=== PATIENT | male | born 1960 | race Caucasian/White ===

== ENCOUNTER 2016-12-18 12:35 | Emergency (ER) | payer BC ==
[~2016-12-18] VITALS: Ht 167.6 cm; Wt 84.5 kg
[2016-12-18 12:50] VITALS: Ht 167.6 cm; Wt 84.5 kg
[2016-12-18] MEDS ORDERED: morphine 4 MG/ML VIAL IV STA (13:00)
[2016-12-18] MEDS ORDERED: ONDANSETRON 4 MG INJ IV STA (13:00)
[2016-12-18 13:48] LABS: ADD SCAN DIFF NO
[2016-12-18 13:50] LABS: BASOPHILS % 0.4 % (0.0-2.0); EOSINOPHILS # 0.1 10^3/ul (0.0-0.5); HEMATOCRIT 40.1 % (42.0-52.0); HEMOGLOBIN 13.8 g/dl (14.0-18.0); LYMPHOCYTES # 2.2 10^3/ul (0.8-2.9); LYMPHOCYTES % 27.9 % (15.0-51.0); MEAN CORPUSCULAR HEMOGLOBIN 31.1 pg (29.0-33.0); MEAN CORPUSCULAR HGB CONC 34.4 g/dl (32.0-37.0); MEAN CORPUSCULAR VOLUME 90.3 fl (82.0-101.0); MEAN PLATELET VOLUME 10.7 fl (7.4-10.4); MONOCYTE # 0.6 10^3/ul (0.3-0.9); MONOCYTES % 7.8 % (0.0-11.0); NEUTROPHILS % 62.5 % (39.0-77.0); PLATELET COUNT 182 10^3/UL (140-415); RED BLOOD COUNT 4.44 10^6/ul (4.70-6.10); RED CELL DISTRIBUTION WIDTH 12.5 % (11.5-14.5)
[2016-12-18 14:06] LABS: ALANINE AMINOTRANSFERASE 32 IU/L (13-69); ALBUMIN 4.8 g/dl (3.3-4.9); ALBUMIN/GLOBULIN RATIO 6.85; ALKALINE PHOSPHATASE 72 IU/L (42-121); ANION GAP 14 (8-16); ASPARTATE AMINO TRANSFERASE 20 IU/L (15-46); BILIRUBIN,INDIRECT 0.3 mg/dl (0-1.1); BILIRUBIN,TOTAL 0.3 mg/dl (0.2-1.3); BLOOD UREA NITROGEN 16 mg/dl (7-20); CALCIUM 9.2 mg/dl (8.4-10.2); CARBON DIOXIDE 27 mmol/L (21-31); CHLORIDE 107 mmol/L (97-110); CREATININE 0.69 mg/dl (0.61-1.24); GLUCOSE 151 mg/dl (70-220); POTASSIUM 3.9 mmol/L (3.5-5.1); SODIUM 144 mmol/L (135-144); TOTAL PROTEIN 5.5 g/dl (6.1-8.1)
--- NOTE | 2016-12-18 14:08 | RADRPT ---
PROCEDURE: US Abdomen. CLINICAL INDICATION: abdominal pain TECHNIQUE: Multiple real-time images were acquired of the patient's right upper quadrant abdomen a nd retroperitoneum utilizing a high resolution transducer. COMPARISON: None FINDINGS: The liver demonstrates slightly increased echogenicity. The liver is enlarged in size and no focal solid lesions are seen. The liver measures 20.4 cm in length. The portal vein is patent with normal direction of flow. No intrahepatic biliary dilatation is seen. No gallstones are identified within the gallbladder. There is no pericholecystic fluid or gallbladd er wall thickening. The common bile duct measures 3.5 mm in maximal dimension. The visualized portions of the pancreas are unremarkable. The tail of the pancreas is not seen. No free fluid is identified. The right kidney is normal in size, and demonstrate normal echogenicity and cortical thickness. The right kidney measures 12.1 cm in long dimension. There is no evidence of hydronephrosis. There are no kidney stones. RPTAT: AA IMPRESSION: Mild hepatomegaly with fatty infiltration. No evidence of gallstones. .Lennox Capps MD, Date Time Electronically viewed and signed by .Lennox Capps MD, on 12/18/2016 14:08 .S/
--- NOTE | 2016-12-18 14:12 | RADRPT ---
PROCEDURE: XR Chest. CLINICAL INDICATION: Abdominal pain. TECHNIQUE: Single frontal view. COMPARISON: None. FINDINGS: The lungs are clear. The heart size is normal. There is no pleural effusion. There is no pneumothorax. IMPRESSION: 1. Normal chest radiograph. RPTAT: QQ .Jerome Pineda MD, Date Time Electronically viewed and signed by .Jerome Pineda MD, on 12/18/2016 14:12 .R/
[2016-12-18 14:20] LABS: TROPONIN-I < 0.012 ng/ml (0.00-0.12)
[2016-12-18 14:35] LABS: ADD UMIC YES; UR BILIRUBIN (Dip) NEGATIVE (NEGATIVE); UR BLOOD (Dip) NEGATIVE (NEGATIVE); UR CLARITY CLEAR (CLEAR); UR COLOR LT. YELLOW (YELLOW); UR GLUCOSE (Dip) NEGATIVE (NEGATIVE); UR KETONES (Dip) NEGATIVE (NEGATIVE); UR LEUKOCYTE ESTERASE (Dip) NEGATIVE (NEGATIVE); UR NITRITE (Dip) NEGATIVE (NEGATIVE); UR TOTAL PROTEIN (Dip) TRACE (NEGATIVE); UR UROBILINOGEN (Dip) 0.2 E.U./dL (0.1-1.0)
--- NOTE | 2016-12-18 14:51 | ERD ---
ER Documentation Chief Complaint Date/Time DATE: 12/18/16 TIME: 14:51 Chief Complaint Pt with R sided CP radiating to R arm since this morning. HPI This is a 56-year-old male who presents to the emergency room for evaluation of right-sided abdominal pain. The patient states she has had abdominal pain for the past 48 hours. He localizes to the right portion of his abdomen and states it is an achy pain is sharp pain worse with deep inspiration. The patient denies any chest pain palpitations shortness of breath or nausea or vomiting associated with this. He does state that he drinks alcohol on a daily basis and did drink alcohol last night. ROS All systems reviewed and are negative except as per history of present illness. Medications Home Meds No Active Prescriptions or Reported Meds Allergies Allergies: Coded Allergies: No Known Allergy (Unverified , 12/18/16) PMhx/Soc Medical and Surgical Hx: pt denies Medical Hx, pt denies Surgical Hx Hx Alcohol Use: Yes (FREQUENT ) Hx Substance Use: No Hx Tobacco Use: Yes (15-35 CIGS/DAY) Smoking Status: Current every day smoker Physical Exam Vitals Vital Signs Date Time Temp Pulse Resp B/P Pulse Ox O2 Delivery O2 Flow Rate FiO2 12/18/16 12:50 98.8 88 18 134/88 98 Physical Exam INITIAL VITAL SIGNS: Reviewed by me GENERAL: The patient is well developed and appropriate for usual state of health in no apparent distress HEENT: Pupils equal, round, and reactive to light. EOMI. There is no scleral icterus. NECK: C-spine is soft and supple, there is no meningismus. There is no cervical lymphadenopathy. LUNGS: Clear to auscultation bilaterally. There are no rales, wheezes or rhonchi. HEART: Regular rate and rhythm, no murmurs, clicks, rubs or gallops. ABDOMEN: Positive Walsh sign, otherwise soft, non-tender, non-distended. There are bowel sounds in all four quadrants. No rebound or guarding. EXTREMITIES: There is no peripheral cyanosis or edema. No focal swelling or erythema. NEUROLOGICAL: The patient moves all four extremities with 5/5 strength. Cranial nerves II - XII are intact. Normal gait. Alert and oriented SKIN: There is no apparent rash or petechiae. HEME/LYMPHATIC: There is no evidence of excessive bruising or lymphedema. PSYCHIATRIC: The patient does not appear anxious or depressed. Result Diagram: 12/18/16 1340 12/18/16 1340 Results 24 hrs Laboratory Tests Test 12/18/16 13:40 12/18/16 14:15 White Blood Count 8.010^3/ul Red Blood Count 4.4410^6/ul Hemoglobin 13.8g/dl Hematocrit 40.1% Mean Corpuscular Volume 90.3fl Mean Corpuscular Hemoglobin 31.1pg Mean Corpuscular Hemoglobin Concent 34.4g/dl Red Cell Distribution Width 12.5% Platelet Count 69557^3/UL Mean Platelet Volume 10.7fl Neutrophils % 62.5% Lymphocytes % 27.9% Monocytes % 7.8% Eosinophils % 1.0% Basophils % 0.4% Nucleated Red Blood Cells % 0.0/100WBC Neutrophils # 5.010^3/ul Lymphocytes # 2.210^3/ul Monocytes # 0.610^3/ul Eosinophils # 0.110^3/ul Basophils # 0.010^3/ul Nucleated Red Blood Cells # 0.010^3/ul Sodium Level 144mmol/L Potassium Level 3.9mmol/L Chloride Level 107mmol/L Carbon Dioxide Level 27mmol/L Anion Gap 14 Blood Urea Nitrogen 16mg/dl Creatinine 0.69mg/dl Glucose Level 151mg/dl Calcium Level 9.2mg/dl Total Bilirubin 0.3mg/dl Direct Bilirubin 0.00mg/dl Indirect Bilirubin 0.3mg/dl Aspartate Amino Transf (AST/SGOT) 20IU/L Alanine Aminotransferase (ALT/SGPT) 32IU/L Alkaline Phosphatase 72IU/L Troponin I < 0.012ng/ml Total Protein 5.5g/dl Albumin 4.8g/dl Globulin 0.70g/dl Albumin/Globulin Ratio 6.85 Lipase 44U/L Urine Color LT. YELLOW Urine Clarity CLEAR Urine pH 6.0 Urine Specific [place] 1.025 Urine Ketones NEGATIVE Urine Nitrite NEGATIVE Urine Bilirubin NEGATIVE Urine Urobilinogen 0.2 E.U./dL Urine Leukocyte Esterase NEGATIVE Urine Microscopic RBC 2-5/HPF Urine Microscopic WBC 0-2/HPF Urine Hemoglobin NEGATIVE Urine Glucose NEGATIVE% Urine Total Protein TRACE Current Medications Medications (Trade) Dose Ordered Sig/Radames Route PRN Reason Start Time Stop Time Status Last Admin Dose Admin Morphine Sulfate (morphine) 4 mg ONCE STAT IV 12/18/16 13:00 12/18/16 13:02 DC 12/18/16 14:15 Ondansetron HCl (Zofran Inj) 4 mg ONCE STAT IV 12/18/16 13:00 12/18/16 13:02 DC 12/18/16 14:15 Procedures/MDM Ultrasound gallbladder: Mild hepatomegaly with fatty infiltration. No evidence of gallstones. Chest X-ray 1V Interpreted by me: Soft Tissue: No acute abnormalities Bones: No acute abnormalities Mediastinum/Cardiac Silhouette/Lungs: [No acute abnormalities] EKG: Rate/Rhythm: [Normal Sinus Rhythm] QRS, ST, T-waves: [No changes consistent w/ acute ischemia] Impression: [No evidence of ischemia or arrhythmia] This is a 36-year-old male presents to the emergency room for evaluation of abdominal pain. When I evaluated him he did have a positive Walsh sign. Ultrasound does not reveal any signs of cholecystitis. The patient has no gallbladder sludge or gallstones. Lab work does not show any leukocytosis. This patient's EKG is also nonischemic and troponin is negative. The patient did have tenderness on the right lateral rib cage as well. I do feel this could be costochondritis. The patient was given Toradol in the emergency room and does state he is feeling better. He will be discharged at this time with a prescription for Naprosyn instructions to decrease his alcohol intake. Patient was advised he can return to the emergency room at any time for reevaluation feels worse and he verbalized understanding. Differential diagnoses entertained was broad with potential high acuity. Patient has been evaluated for appendicitis, cholecystitis, and other high risk medical and surgical causes of abdominal pain. Ultimately the patient's evaluation is nondiagnostic. Based on the patient's lack of risk factors, as well as the patient's clinical, laboratory, and imaging data, the patient appears to be low risk for these high risk causes of abdominal pain. Smoking Cessation Therapy: Pt. was lectured for greater than 3 minutes on the health risks of continued smoking and the benefits of cessation. Departure Diagnosis: Primary Impression: Abdominal pain Additional Impression: Alcohol abuse Condition: Stable LAYA CURRAN DO Dec 18, 2016 14:51
[2016-12-18] MEDS ORDERED: KETOROLAC 15 MG INJ IV STA (14:56)
[2016-12-18] MEDS ORDERED: IBUP800T25 PO (15:00)
[2016-12-18 16:12] VITALS: BP 115/79; PULSE 75; RESP 20
== END 2016-12-18 16:15 | disposition home or self-care (01) ==
LOC: E/R 12:35
DX: R10.9 Unspecified abdominal pain (principal); F10.10 Alcohol abuse, uncomplicated; F17.210 Nicotine dependence, cigarettes, uncomplicated
CPT/HCPCS: 36415; 71010; 76705; 80053; 81001; 83690; 84484; 85025; 96374; 96375; J1885; J2270; J2405; Z7502; 93005

== ENCOUNTER 2017-08-08 13:50 | Emergency (ER) | END 2017-08-08 16:12 | disposition home or self-care (01) ==

== ENCOUNTER 2018-06-27 08:03 | Emergency (ER) | payer BC ==
[~2018-06-27] VITALS: Wt 88.5 kg
[~2018-06-27 08:03] MED LIST: CETI10CA PO; ERYT1OIN6 BOTH EYES; IBUP800T48 PO
[2018-06-27 08:11] VITALS: BP 146/97; PULSE 102; RESP 16
[2018-06-27] MEDS ORDERED: KETOROLAC 30 MG INJ IM STA (08:26)
[2018-06-27] MEDS ORDERED: HYDROCODONE/APAP (5/325) TAB PO ONE (08:30)
[2018-06-27] MEDS ORDERED: IBUP-1542 PO (09:20)
[2018-06-27] MEDS ORDERED: TRAM50TA2 PO (09:20)
--- NOTE | 2018-06-27 10:16 | ERD ---
ER Documentation Chief Complaint Chief Complaint LEFT BACK PAIN RADIATING DOWN THE LEFT LEG HPI Patient is a 57-year-old male who presents to the ER for concerns of left-sided back pain and left leg pain. Patient states his symptoms started 2 days ago. Patient states the pain started after he moved a heavy object which "four other people could not move". Patient states he has tried taking ibuprofen and Tylenol and naproxen with no alleviation of pain. Patient states the pain is in his calf as well as his lower back. Patient denies any fevers or chills. Patient denies any chest pain, shortness of breath, nausea, vomiting or abdominal pain. Patient denies any saddle anesthesia, urinary incontinence or stool incontinence. Patient denies any dysuria, burning, urgency or hematuria. ROS All systems reviewed and are negative except as per history of present illness. Medications Home Meds Active Scripts Ibuprofen* (Motrin*) 600 Mg Tab, 600 MG PO Q6, #30 TAB Prov:ALBERT ANDRES PA-C 06/27/18 Tramadol HCl (Tramadol HCl) 50 Mg Tablet, 50 MG PO Q6 PRN for PAIN, #10 TAB Prov:ALBERT ANDRES PA-C 06/27/18 Erythromycin Base (Erythromycin) 1 Gm Oint...g., 1 APPLIC BOTH EYES TID for 7 Days Prov:ALBERT ANDRES PA-C 08/08/17 Cetirizine Hcl* (Zyrtec*) 10 Mg Capsule, 10 MG PO DAILY, #10 TAB.CHEW Prov:ALBERT ANDRES PA-C 08/08/17 Ibuprofen* (Motrin*) 800 Mg Tab, 800 MG PO Q6H PRN for PAIN AND OR ELEVATED TEMP, #30 TAB Prov:LAYA CURRAN DO 12/18/16 Allergies Allergies: Coded Allergies: No Known Allergy (Unverified , 06/27/18) PMhx/Soc Medical and Surgical Hx: pt denies Medical Hx, pt denies Surgical Hx Hx Alcohol Use: Yes (FREQUENT ) Hx Substance Use: No Hx Tobacco Use: Yes (15-35 CIGS/DAY) Smoking Status: Current every day smoker FmHx Family History: No diabetes Physical Exam Vitals Vital Signs Date Temp Pulse Resp B/P (MAP) Pulse Ox O2 O2 Flow FiO2 Time Delivery Rate 06/27/18 97.9 102 16 146/97 96 08:11 (113) Physical Exam GENERAL: Well-developed, well-nourished male. Appears in no acute distress. HEAD: Normocephalic, atraumatic. EYES: Pupils are equally reactive bilaterally. EOMs grossly intact. No conjunctival erythema. ENT: Moist mucous membranes. No uvula deviation. No kissing tonsils. NECK: Supple. No meningismus. Normal range of motion of the neck. LUNG: Clear to auscultation bilaterally. No rhonchi, wheezing, rales or coarse breath sounds. HEART: Regular rate and rhythm. No murmurs, rubs or gallops. BACK: No midline tenderness. Tender to palpation in the left paraspinal lumbar region. Pain is reproducible EXTREMITIES: Equal pulses bilaterally. No peripheral clubbing, cyanosis or edema. No unilateral leg swelling. NEUROLOGIC: Alert and oriented. Moving all four extremities without any difficulty. Normal speech. Steady gait. SKIN: Normal color. Warm and dry. No rashes or lesions. Results 24 hrs Current Medications Medications Dose Sig/Radames Start Time Status Last (Trade) Ordered Route PRN Stop Time Admin Dose Reason Admin 1 tab ONCE ONCE 06/27/18 DC 06/27/18 Acetaminophen PO 08:30 08:33 / 06/27/18 Hydrocodone 08:31 Bitart ([place] (5/325)) Ketorolac 30 mg ONCE STAT 06/27/18 DC 06/27/18 Tromethamine IM 08:26 08:33 (Toradol) 06/27/18 08:29 Procedures/MDM ED COURSE: The patient was stable throughout ED course. I kept the patient and/or family informed of laboratory and diagnostic imaging results throughout the ED course. DIAGNOSTIC IMAGING: Read by radiologist. DIAGNOSTIC IMAGING REPORT Patient: DISHA ROSAS : 1960 Age: 57 Sex: M MR #: [id number] DOS: 06/27/18825 Ordering MD: ALBERT ANDRES PA-C Location: [facility] Room/Bed: PROCEDURE: XR Lumbar Spine. CLINICAL INDICATION: Back pain. TECHNIQUE: Three views. AP, lateral and cone-down lateral view of the lumbar spine were obtained. COMPARISON: No prior studies are available for comparison. FINDINGS: There is normal stature and alignment of the vertebrae. There is no fracture. There is no lytic or blastic lesion. There are degenerative changes with small osteophytes throughout. There is disc space narrowing at L4-5. The paravertebral soft tissues are unremarkable. IMPRESSION: 1. Degenerative changes. 2. Otherwise unremarkable images of the lumbar spine. RPTAT: QQ .Jerome Pineda MD, Date Time Electronically viewed and signed by .Jerome Pineda MD, MD on 06/27/2018 09:08 .R/ CC: ALBERT ANDRES PA-C [id number] Patient: DISHA ROSAS : 1960 Age: 57 Sex: M MR #: [id number] DOS: 06/27/18 0826 Ordering MD: ALBERT ANDRES PA-C Location: [facility] Room/Bed: PROCEDURE: US Lower extremity Venous. CLINICAL INDICATION: leg edema, pain TECHNIQUE: Multiple sonographic images of the left lower extremity deep venous system was obtained utilizing grayscale, color-flow, compressive sonography and doppler imaging with augmentation. The images were reviewed on a PACS worksta tion. COMPARISON: None. FINDINGS: There is normal compressibility and flow within the left common femoral, femoral, posterior tibial, peroneal and popliteal veins. RPTAT: AA IMPRESSION: No sonographic evidence for deep venous thrombosis. .Lennox Capps MD, MD Date Time Electronically viewed and signed by .Lennox Capps MD, MD on 06/27/2018 08:54 .S/ CC: ALBERT ANDRES PA-C [phone] MEDICAL DECISION MAKING: This is a 57-year-old male who presents ER for concerns of left-sided back pain and left leg pain patient denies any falls or trauma. Pain started after patient lifted a heavy object. Vital signs were reviewed. Patient was afebrile. Patient denied any saddle anesthesia, urinary incontinence, bowel incontinence, night pain or recent trauma. X-ray imaging showed degenerative changes of the lumbar spine. Doppler ultrasound of the left lower extremity was negative for DVT. Patient was given Toradol and [place] for his pain. Patient was able to get a ride home from his family member. Patient reported improvement in pain prior to discharge. At this time, patient presentation most consistent with lower back pain and left leg pain. Patient likely has sciatica. Low suspicion for cauda equine syndrome, spinal fractures, epidural abscess, spinal metastases, osteomyelitis, aortic dissection, ruptured or leaking AA, DJD, pyelonephritis, DVT, or nephrolithiasis. PRESCRIPTIONS: Ibuprofen Tramadol, patient was asked to take this medication driving or operating any machinery. DISCHARGE: At this time, patient is stable for discharge and outpatient management. RICE therapy and ROM exercises were advised to avoid stiffness. I have instructed the patient to follow-up with his/her primary care physician in 1-2 days. I have discussed with the patient the possibility of needing to see an field sales specialist for further workup and imaging if the pain persists. I have instructed the patient to promptly return to the ER for any new or worsening symptoms including increased pain, swelling, warmth, urinary incontinence, stool incontinence, weakness or numbness. The patient and/or family expressed understanding of and agreement with this plan. All questions were answered. Home care instructions were provided. Disclaimer: Inadvertent spelling and grammatical errors are likely due to EHR/dictation software use and do not reflect on the overall quality of patient care. Also, please note that the electronic time recorded on this note does not necessarily reflect the actual time of the patient encounter. Departure Diagnosis: Primary Impression: Musculoskeletal pain Additional Impression: Lumbar back pain Condition: Stable Patient Instructions: Back Pain W/ Sciatica Additional Instructions: Do not take tramadol driving or operating any machinery. Call your primary care doctor TOMORROW for an appointment during the next 1-2 days.See the doctor sooner or return here if your condition worsens before your appointment time. ALBERT ANDRES PA-C Jun 27, 2018 10:16
== END 2018-06-27 09:33 | disposition home or self-care (01) ==
LOC: FTE 08:03
DX: M54.5 Low back pain (principal); F17.210 Nicotine dependence, cigarettes, uncomplicated
CPT/HCPCS: 72100; 93971; 96372; 99285; J1885; Z7610

== ENCOUNTER 2018-07-01 00:55 | Emergency (ER) | payer BC ==
[~2018-07-01] VITALS: Ht 167.6 cm; Wt 86.7 kg
[~2018-07-01 00:55] MED LIST changes: +IBUP-1542 PO; +TRAM50TA2 PO
[2018-07-01 00:58] VITALS: Ht 167.6 cm; Wt 86.7 kg
[2018-07-01] MEDS ORDERED: morphine 4 MG/ML VIAL IM STA (01:37)
[2018-07-01] MEDS ORDERED: KETOROLAC 30 MG INJ IM STA (02:39)
[2018-07-01] MEDS ORDERED: HYDR-4011 PO (04:39)
[2018-07-01 04:54] VITALS: BP 122/71; PULSE 93; RESP 18
--- NOTE | 2018-07-01 05:33 | ERD ---
ER Documentation Chief Complaint Chief Complaint L leg pain since wednesday- seen @ 06/27 and PMD already HPI 57-year-old male patient reports that the back pain feels like it is radiating d own his left leg but also feels like the left ankle pain is radiating up to his back. Reports that when he was trying to lift up the heavy object, he may have twisted his left ankle. She reports that he is tried taking ibuprofen, naproxen, tramadol without any relief. Reports his pain is 10 out of 10. States that movement makes his pain worse. Denies any saddle anesthesia, urine or bowel incontinence. Denies any fever, chills, nausea, vomiting, diarrhea, neck stiffness, loss sensation, loss of range of motion. ROS All systems reviewed and are negative except as per history of present illness. Medications Home Meds Active Scripts Hydrocodone/Acetaminophen ([place] 5-325 Tablet) 1 Each Tablet, 1 TAB PO Q6H PRN for PAIN, #7 TAB Prov:AALIYAH LOPEZ PA-C 07/01/18 Ibuprofen* (Motrin*) 600 Mg Tab, 600 MG PO Q6, #30 TAB Prov:ALBERT ANDRES PA-C 06/27/18 Tramadol HCl (Tramadol HCl) 50 Mg Tablet, 50 MG PO Q6 PRN for PAIN, #10 TAB Prov:ALBERT ANDRES PA-C 06/27/18 Erythromycin Base (Erythromycin) 1 Gm Oint...g., 1 APPLIC BOTH EYES TID for 7 Days Prov:ALBERT ANDRES PA-C 08/08/17 Cetirizine Hcl* (Zyrtec*) 10 Mg Capsule, 10 MG PO DAILY, #10 TAB.CHEW Prov:ALBERT ANDRES PA-C 08/08/17 Ibuprofen* (Motrin*) 800 Mg Tab, 800 MG PO Q6H PRN for PAIN AND OR ELEVATED TEMP, #30 TAB Prov:LAYA CURRAN DO 12/18/16 Allergies Allergies: Coded Allergies: No Known Allergy (Unverified , 06/27/18) PMhx/Soc Medical and Surgical Hx: pt denies Medical Hx, pt denies Surgical Hx Hx Alcohol Use: Yes (FREQUENT ) Hx Substance Use: No Hx Tobacco Use: Yes Smoking Status: Current every day smoker FmHx Family History: No diabetes, No coronary disease Physical Exam Vitals Vital Signs Date Temp Pulse Resp B/P (MAP) Pulse Ox O2 O2 Flow FiO2 Time Delivery Rate 07/01/18 98.8 93 18 122/71 98 Room Air 04:54 (88) 07/01/18 97.4 104 20 184/104 98 00:58 (130) Physical Exam Const: [id number], well-nourished. In no acute distress. Head: Atraumatic, normocephalic Eyes: Normal Conjunctiva without injection. No purulent discharge. ENT: Normal external ear, nose. Moist oropharynx without tonsillar exudates. Non-erythematous pharynx. Uvula midline. No drooling. No trismus. Neck: No cervical midline tenderness. Full range of motion. No meningismus. No cervical lymphadenopathy. No JVD. Resp: Clear to auscultation bilaterally. No wheezing, rhonchi, rales, or crackles. No accessory muscle use. No retractions. Cardio: Regular rate and rhythm. No murmurs, rubs or gallops. Abd: Soft, nontender, non distended. Normal bowel sounds. No palpable masses. No rebound tenderness. No guarding. Negative McBurney's point. Negative psoas sign. Negative obturator sign. Skin: No petechiae or rashes Back: No CVA tenderness. Tender palpation of the left lumbar muscles, L4-L5 region. Limited range of motion due to pain. Ext: No cyanosis, or edema. Neur: Awake and alert. Normal gait. Normal coordination. Psych: Normal Mood and Affect Results 24 hrs Current Medications Medications Dose Sig/Radames Start Time Status Last (Trade) Ordered Route PRN Stop Time Admin Dose Reason Admin Morphine 4 mg ONCE STAT 07/01/18 DC 07/01/18 Sulfate IM 01:37 01:52 (morphine) 07/01/18 01:43 Ketorolac 30 mg ONCE STAT 07/01/18 DC 07/01/18 Tromethamine IM 02:39 03:02 (Toradol) 07/01/18 02:40 Procedures/MDM 57-year-old male patient with no significant past medical history presents to ED complaining of lower back pain, left leg pain. Patient is afebrile and nontoxic-appearing. Patient given 4 mg IM morphine, 30 mg IM Toradol with some improvement of his symptoms. PROCEDURE: XR Left Ankle. CLINICAL INDICATION: Left-sided ankle injury TECHNIQUE: AP, lateral and oblique view(s) of the left ankle were performed. COMPARISON: None FINDINGS: There is no acute fracture identified. The joint spaces are preserved. The regional soft tissues are within normal limits. IMPRESSION: No definite evidence for acute fracture or dislocation of the left ankle. PROCEDURE: CT L-Spine. CLINICAL INDICATION: Back and leg pain. TECHNIQUE: CT scan of the lumbar spine was performed on a high-resolution multi-detector CT scanner. No IV contrast was administered. Coronal and sagittal reformatted images were obtained from the axial source images. Images were reviewed on a high-resolution PACS workstation. Exam CTDI = 25.0 mGy and the DLP = 995.13 mGy-cm. One or more of the following dose reduction techniques were used: automated exposure control, adjustment of the mA and/or kV according to patient size, or use of iterative reconstruction technique. DICOM images are available. COMPARISON: None FINDINGS: A 3 mm calculus is identified in the interpolar region of the right kidney. No h ydronephrosis is seen. There is preservation of the normal lumbar lordosis. The osseous mineralization and alignment are normal. No acute fracture or dislocation is seen. The vertebral body heights are all well preserved. Posterior elements structures are intact. The paraspinous soft tissues are unremarkable. No mass, hematoma, or other soft tissue abnormality is seen. T12-L1: The disk is normal in height. There is facet and ligamentum flavum hypertrophy. L1-2: The disc height is maintained. There are anterior osteophytes. Facet and ligamentum flavum hypertrophy. No significant central canal stenosis or foraminal narrowing. L2-3: The disk is normal in height. There are anterior osteophytes. Facet and ligamentum flavum hypertrophy. No significant central canal stenosis or foraminal narrowing. L3-4: The disk is normal in height. There are anterior osteophytes and mild disc bulge. Facet and ligamentum flavum hypertrophy. No significant central canal stenosis. Mild moderate foraminal narrowing. L4-5: There is moderate severe disc height loss, vacuum disc, osteophytes, disc bulge and central disc protrusion with effacement of the lateral recesses and severe central canal stenosis. Facet and ligamentum flavum hypertrophy with severe bilateral foraminal narrowing. L5-S1: The disk is normal in height. No central canal stenosis. Moderate bilateral foraminal narrowing. The sacrum is intact. There are sclerotic lesions in the iliac bones. IMPRESSION: 1. No evidence of fracture or dislocation. 2. Degenerative changes as described above most pronounced at the L4-5 level with central disc protrusion, severe central canal stenosis and severe bilateral foraminal narrowing. 3. Nonobstructing right renal calculus. Disc Protrusion and Severe Central Stenosis noted. Patient is ambulating here in the ED without difficulty. Denies saddle anesthesia, numbness or tingling, urine or bowel incontinence, weakness. Low suspicion for cauda equina syndrome, cord compression, nephrolithiasis, aortic aneurysm, aortic dissection, epidural abscess, spinal hematoma, malignancy, pyelonephritis, or other emergent conditions. Patient's extremity symptoms have stabilized while they have been evaluated in the department and are appropriate for outpatient follow up. No evidence of fractures, dislocations, compartment syndrome, neurologic injury, vascular injury, open joint, open fracture, tendon laceration, septic arthritis, osteomyelitis, DVT, foreign body, or other emergent conditions. Diagnosis: Back Pain, Pain of Left Leg Discharge medications: Cimarron Follow up with primary care physician in 1-2 days for a referral to physical therapy, orthopedic physician, pain management. Instructed patient to return to the ED sooner for any worsening symptoms. Patient's questions were answered. Patient is hemodynamically stable. Patient understood and agreed with discharge plan. Patient discharged stable. Disclaimer: Inadvertent spelling and grammatical errors are likely due to EHR/dictation software use and do not reflect on the overall quality of patient care. Also, please note that the electronic time recorded on this note does not necessarily reflect the actual time of the patient encounter. Departure Diagnosis: Primary Impression: Pain of left leg Additional Impression: Back pain Back pain location: low back pain Chronicity: unspecified Back pain laterality: left Sciatica presence: unspecified whether sciatica present Qualified Codes: M54.5 - Low back pain Condition: Stable Patient Instructions: Possible Causes of Low Back or Leg Pain, Back Pain W/ Sciatica Referrals: COMM[facility] YOU HAVE RECEIVED A MEDICAL SCREENING EXAM AND THE RESULTS INDICATE THAT YOU DO NOT HAVE A CONDITION THAT REQUIRES URGENT TREATMENT IN THE EMERGENCY DEPARTMENT. FURTHER EVALUATION AND TREATMENT OF YOUR CONDITION CAN WAIT UNTIL YOU ARE SEEN IN YOUR DOCTORS OFFICE WITHIN THE NEXT 1-2 DAYS. IT IS YOUR RESPONSIBILITY TO MAKE AN APPOINTMENT FOR FOLOW-UP CARE. IF YOU HAVE A PRIMARY DOCTOR --you should call your primary doctor and schedule an appointment IF YOU DO NOT HAVE A PRIMARY DOCTOR YOU CAN CALL OUR PHYSICIAN REFERRAL HOTLINE AT IF YOU CAN NOT AFFORD TO SEE A PHYSICIAN YOU CAN CHOSE FROM THE FOLLOWING [facility] [address] [facility] [facility] [address] [facility] [address] [facility] [address] [facility]. [facility] [address] [facility] [address]. [facility] YOU HAVE RECEIVED A MEDICAL SCREENING EXAM AND THE RESULTS INDICATE THAT YOU DO NOT HAVE A CONDITION THAT REQUIRES URGENT TREATMENT IN THE EMERGENCY DEPARTMENT. FURTHER EVALUATION AND TREATMENT OF YOUR CONDITION CAN WAIT UNTIL YOU ARE SEEN IN YOUR DOCTORS OFFICE WITHIN THE NEXT 1-2 DAYS. IT IS YOUR RESPONSIBILITY TO MAKE AN APPOINTMENT FOR FOLOW-UP CARE. IF YOU HAVE A PRIMARY DOCTOR --you should call your primary doctor and schedule and appointment IF YOU DO NOT HAVE A PRIMARY DOCTOR YOU CAN CALL OUR PHYSICIAN REFERRAL HOTLINE AT . IF YOU CAN NOT AFFORD TO SEE A PHYSICIAN YOU CAN CHOSE FROM THE FOLLOWING [facility] INSTITUTIONS: [facility] [address] [place] [address] [facility] [address] [place] [address] [facility] [address] [place] [address] [facility] Additional Instructions: Call your primary care doctor TOMORROW for an appointment during the next 2-3 days for a referral to see an orthopedic physician, pain management physician, physical therapy.See the doctor sooner or return here if your condition worsens before your appointment time. Heat pads recommended for your back. AALIYAH LOPEZ PA-C Jul 01, 2018 05:33
== END 2018-07-01 04:55 | disposition home or self-care (01) ==
LOC: FTE 00:55
DX: M79.605 Pain in left leg (principal); M54.5 Low back pain; F17.210 Nicotine dependence, cigarettes, uncomplicated
CPT/HCPCS: 72131; 73610; 96372; 99285; J1885; J2270

== ENCOUNTER 2018-09-30 20:09 | Emergency (ER) | payer BC ==
[~2018-09-30] VITALS: Wt 84.3 kg
[~2018-09-30 20:09] MED LIST changes: +HYDR-4011 PO
--- NOTE | 2018-10-01 00:26 | ERD ---
ER Documentation Chief Complaint Chief Complaint HEAD LAC S/P HITTING METAL OBJECT AT WORK HPI This is a 58-year-old male who presents here in emergency department with complaints of scalp/head laceration secondary to head injury without loss of consciousness. Stated that this happened around 7 PM tonight at work. 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 No loss of consciousness. Denies loss of consciousness, dizziness, neck pain, neck stiffness, throat pain, difficulty swallowing, difficulty breathing lying flat, shoulder pain, chest pain, back pain, abdominal pain, nausea, vomiting, constipation, diarrhea, urinary symptoms, loss of bowel and bladder control, trauma, injury, falls, difficulty walking due to pain, numbness or tingling sensation, calf pain, recent travel, recent major surgery in the last 3 weeks, calf pain, recent long travel, recent exposure to any illness, recent antibiotic use in the last 3 months, fever, chills, seizures. Past medical history: Surgical history: Social: Denies smoking, use of alcoholic beverages, use of illegal drugs. ROS All systems reviewed and are negative except as per history of present illness. Medications Home Meds Active Scripts Cephalexin* (Keflex*) 500 Mg Capsule, 500 MG PO BID for 5 Days, CAP Prov:PASILABANYUNIAR F 10/01/18 Acetaminophen* (Tylophen*) 500 Mg Capsule, 1 CAP PO Q6H PRN for PAIN AND OR ELEVATED TEMP, #20 CAP Prov:PASILABAN,KLAR F 10/01/18 Hydrocodone/Acetaminophen ([place] 5-325 Tablet) 1 Each Tablet, 1 TAB PO Q6H PRN for PAIN, #7 TAB Prov:AALIYAH LOPEZ PA-C 07/01/18 Ibuprofen* (Motrin*) 600 Mg Tab, 600 MG PO Q6, #30 TAB Prov:ALBERT ANDRES PA-C 06/27/18 Tramadol HCl (Tramadol HCl) 50 Mg Tablet, 50 MG PO Q6 PRN for PAIN, #10 TAB Prov:ALBERT ANDRES PA-C 06/27/18 Erythromycin Base (Erythromycin) 1 Gm Oint...g., 1 APPLIC BOTH EYES TID for 7 Days Prov:ALBERT ANDRES PA-C 08/08/17 Cetirizine Hcl* (Zyrtec*) 10 Mg Capsule, 10 MG PO DAILY, #10 TAB.CHEW Prov:ALBERT ANDRES PA-C 08/08/17 Ibuprofen* (Motrin*) 800 Mg Tab, 800 MG PO Q6H PRN for PAIN AND OR ELEVATED TEMP, #30 TAB Prov:LAYA CURRAN DO 12/18/16 Allergies Allergies: Coded Allergies: No Known Allergy (Unverified , 06/27/18) PMhx/Soc Hx Alcohol Use: Yes (FREQUENT ) Hx Substance Use: No Hx Tobacco Use: Yes Physical Exam Vitals Physical Exam Const: No acute distress Head: Normocephalic. Noted scalp laceration measuring 5.5 cm to right parietal area. Eyes: Normal Conjunctiva. Good eye movement. No visual field loss. ENT: Normal External Ears, Nose and Mouth. Bilateral ears: No ear laceration. TM is not erythematous. No bleeding. No discharge. No hearing loss. No mastoid tenderness. Nose: Midline without deformity. No septal hematoma. Throat: Uvula is midline and nondisplaced. Tonsils are +1 bilaterally without redness without exudates. Tolerating secretions. Patent airway. Speaks full and clear sentences. No lip laceration. No tongue laceration. Able to control tongue movement. Neck: Full range of motion. No meningismus. C-spine is in midline with good and full range of motion and is no swelling/bulging/point of tenderness. Resp: Clear to auscultation bilaterally Cardio: Regular rate and rhythm, no murmurs Abd: Soft, non tender, non distended. Normal bowel sounds Skin: No petechiae or rashes Back: No midline or flank tenderness Ext: No cyanosis, or edema Neur: Awake and alert. No facial droop. Able to follow commands. 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 Equal strength in bilateral upper and lower extremities. No signs of incontinence. Romberg test is negative. Sensation is intact. No neurological deficits. Psych: Normal Mood and Affect Results 24 hrs Current Medications Medications Dose Sig/Radames Start Time Status Last (Trade) Ordered Route PRN Stop Time Admin Dose Reason Admin Diphtheria/ 0.5 ml ONCE ONCE 10/01/18 DC 10/01/18 Tetanus/Acell IM* 00:30 00:42 Pertussis 10/01/18 00:31 (Adacel) 1 tab ONCE ONCE 10/01/18 DC 10/01/18 Acetaminophen PO 00:30 00:41 / 10/01/18 00:31 Hydrocodone Bitart ([place] (10/325)) Lidocaine/ 50 ml ONCE ONCE 10/01/18 Cancel Epinephrine INJ 00:30 (Xylocaine 10/01/18 00:31 1%/ Epi (Mdv)) Lidocaine/ 30 ml ONCE ONCE 10/01/18 DC Epinephrine INJ 01:00 (Xylocaine 10/01/18 01:01 1%/ Epi (Pf)) Bacitracin 1 applic ONCE ONCE 10/01/18 DC (Bacitracin TOP 02:00 Oint (Ud)) 10/01/18 02:01 Procedures/MDM Diagnostic tests: CT of the brain: No acute intracranial findings. Treatment: Adacel IM. Leupp p.o. Procedure: Laceration repair. Betadine prep. Lidocaine 1% with epi 3 cc subcu. Copious/pressure irrigation with saline was done. Wound was explored. No foreign body seen. Skull not visualized. Pound x10. Bacitracin and dressing was applied by EMT. Re-evaluation: No neurological deficit. Differential diagnosis I have low suspicion for epidural hematoma, subdural hematoma, skull fracture, subarachnoid hemorrhage, septal hematoma, [place], mandibular fracture, C-spine fracture, hemorrhage. Final diagnosis: Scalp laceration secondary to head injury without loss of consciousness. Prescription: Tylenol. Keflex. Follow-up with PCP in the next 24-48 hours. Come back in 2 days for wound check. Come back in 7-10 days for staple removal. Come back here in the emergency department for any new symptoms or any worsening symptoms. All questions and concerns were answered. Patient and family members verbalized understanding and agreed with plan of care. Hemodynamically stable on discharge. Departure Diagnosis: Primary Impression: Head injury, acute, without loss of consciousness Additional Impression: Scalp laceration Condition: Stable Additional Instructions: Follow-up with PCP in the next 24-48 hours. Come back in 2 days for wound check. Come back in 7-10 days for staple removal. Come back here in the emergency department for any new symptoms or any worsening symptoms. SHERRI TORRES Oct 01, 2018 00:26
[2018-10-01] MEDS ORDERED: HYDROCODONE/APAP (10/325) TAB PO ONE (00:30)
[2018-10-01] MEDS ORDERED: LIDOCAINE 1%/EPI (MDV) 50 ML INJ INJ ONE (00:30)
[2018-10-01] MEDS ORDERED: DIPHTH/TET/ACEL PERTUSS (ADULT) 0.5 ML VIAL IM* ONE (00:30)
[2018-10-01] MEDS ORDERED: LIDOCAINE 1%/EPI 30 ML INJ INJ ONE (01:00)
[2018-10-01] MEDS ORDERED: ACET500C5 PO (01:36)
[2018-10-01] MEDS ORDERED: CEPH-443 PO (01:36)
[2018-10-01 01:46] VITALS: BP 124/69; PULSE 77; RESP 20
[2018-10-01] MEDS ORDERED: BACITRACIN 0.9 GM OINT TOP ONE (02:00)
== END 2018-10-01 01:43 | disposition home or self-care (01) ==
LOC: FTE 20:09
DX: S01.01XA Laceration without foreign body of scalp, initial encounter (principal); S09.90XA Unspecified injury of head, initial encounter; W22.8XXA Striking against or struck by other objects, initial encounter; Y92.89 Other specified places as the place of occurrence of the external cause; Z23 Encounter for immunization; Z87.891 Personal history of nicotine dependence
CPT/HCPCS: 12002; 70450; 90471; 90715; 99284; Z7610

== ENCOUNTER 2018-10-03 04:26 | Emergency (ER) | payer BC ==
[~2018-10-03] VITALS: Ht 170.2 cm; Wt 84.4 kg
[~2018-10-03 04:26] MED LIST changes: +ACET500C5 PO; +CEPH-443 PO
[2018-10-03 04:29] VITALS: Ht 170.2 cm; Wt 84.4 kg
--- NOTE | 2018-10-03 10:35 | ERD ---
ER Documentation Chief Complaint Chief Complaint wound check; right head with tamar HPI 58-year-old male presenting with wound check. Patient had tamar placed 2 days ago and the side of his head after he hit himself on a metal bench. He denies any loss of consciousness or dizziness. He denies any vomiting or trouble sleeping. Denies other medical problems. NKDA. Surgical history denies. Social history smokes cigarettes. ROS All systems reviewed and are negative except as per history of present illness. Medications Home Meds Active Scripts Cephalexin* (Keflex*) 500 Mg Capsule, 500 MG PO BID for 5 Days, CAP Prov:PASILABAN,YUNIAR F 10/01/18 Acetaminophen* (Tylophen*) 500 Mg Capsule, 1 CAP PO Q6H PRN for PAIN AND OR ELEVATED TEMP, #20 CAP Prov:PASILABAN,YUNIAR F 10/01/18 Hydrocodone/Acetaminophen ([place] 5-325 Tablet) 1 Each Tablet, 1 TAB PO Q6H PRN for PAIN, #7 TAB Prov:AALIYAH LOPEZ PA-C 07/01/18 Ibuprofen* (Motrin*) 600 Mg Tab, 600 MG PO Q6, #30 TAB Prov:ALBERT ANDRES PA-C 06/27/18 Tramadol HCl (Tramadol HCl) 50 Mg Tablet, 50 MG PO Q6 PRN for PAIN, #10 TAB Prov:ALBERT ANDRES PA-C 06/27/18 Erythromycin Base (Erythromycin) 1 Gm Oint...g., 1 APPLIC BOTH EYES TID for 7 Days Prov:ALBERT ANDRES PA-C 08/08/17 Cetirizine Hcl* (Zyrtec*) 10 Mg Capsule, 10 MG PO DAILY, #10 TAB.CHEW Prov:ALBERT ANDRES PA-C 08/08/17 Ibuprofen* (Motrin*) 800 Mg Tab, 800 MG PO Q6H PRN for PAIN AND OR ELEVATED TEMP, #30 TAB Prov:LAYA CURRAN DO 12/18/16 Allergies Allergies: Coded Allergies: No Known Allergy (Unverified , 06/27/18) PMhx/Soc History of Surgery: No Anesthesia Reaction: No Hx Neurological Disorder: No Hx Respiratory Disorders: No Hx Cardiac Disorders: No Hx Miscellaneous Medical Probl: No Hx Alcohol Use: No Hx Substance Use: No Hx Tobacco Use: No Smoking Status: Never smoker FmHx Family History: No diabetes, No coronary disease, No other Physical Exam Vitals Vital Signs Date Temp Pulse Resp B/P (MAP) Pulse Ox O2 O2 Flow FiO2 Time Delivery Rate 10/03/18 97.2 102 18 119/86 99 04:29 (97) Physical Exam GENERAL: The patient is well-appearing, well-nourished, in no acute distress HEENT: Atraumatic. Conjunctivae are pink. Pupils equal, round, and reactive to light. There is no scleral icterus. Tympanic membranes clear bilaterally. Oropharynx clear. NECK: C-spine is soft and supple. There is no meningismus. There is no cervical lymphadenopathy. CHEST: Clear to auscultation bilaterally. There are no rales, wheezes or rhonchi. HEART: Regular rate and rhythm. No murmurs, clicks, rubs or gallops. NEUROLOGIC Motor strength in all 4 extremities with 5 out of 5 strength. Sensation grossly intact. SKIN: Tamar in place with no surrounding erythema or dehiscence of the wound. No purulence. Procedures/MDM MDM: 58-year-old male presenting for wound check. Patient's tamar are intact with no signs of infection. Patient is told to return in 4 days for staple cerumen be removed. Equals will not be removed today. Patient is discharged with strict ER precautions. No neuro deficit noted on exam. All questions answered at the Departure Diagnosis: Primary Impression: Encounter for wound re-check Condition: Stable Patient Instructions: Wound Check, Lac F/U (No Infection) Referrals: JULIÁN APPLE MD (PCP) Additional Instructions: FOLLOW UP WITH YOUR PRIMARY CARE PHYSICIAN TOMORROW.Return to this facility if you are not improving as expected. MARIA GUTIERREZ PA-C Oct 03, 2018 10:35
== END 2018-10-03 07:58 | disposition home or self-care (01) ==
LOC: FTE 04:26
DX: Z48.01 Encounter for change or removal of surgical wound dressing (principal)
CPT/HCPCS: 99281

== ENCOUNTER 2018-10-08 04:17 | Emergency (ER) | payer BC ==
[~2018-10-08] VITALS: Ht 167.6 cm; Wt 85.1 kg
[2018-10-08 04:31] VITALS: BP 134/72; PULSE 93; RESP 18; Ht 167.6 cm; Wt 85.1 kg
--- NOTE | 2018-10-08 05:55 | ERD ---
ER Documentation Chief Complaint Chief Complaint staple removal, was here 1 week ago for scalp laceration repair HPI 58-year-old male presents for staple removal of a forehead laceration that was repaired 1 week ago. He was given antibiotics which he completed. He denies any fevers. No pain at the site. ROS All systems reviewed and are negative except as per history of present illness. Medications Home Meds Active Scripts Cephalexin* (Keflex*) 500 Mg Capsule, 500 MG PO BID for 5 Days, CAP Prov:PASILABAN,KLAR F 10/01/18 Acetaminophen* (Tylophen*) 500 Mg Capsule, 1 CAP PO Q6H PRN for PAIN AND OR ELEVATED TEMP, #20 CAP Prov:PASILABAN,KLAR F 10/01/18 Hydrocodone/Acetaminophen (Premium 5-325 Tablet) 1 Each Tablet, 1 TAB PO Q6H PRN for PAIN, #7 TAB Prov:AALIYAH LOPEZ PA-C 07/01/18 Ibuprofen* (Motrin*) 600 Mg Tab, 600 MG PO Q6, #30 TAB Prov:ALBERT ANDRES PA-C 06/27/18 Tramadol HCl (Tramadol HCl) 50 Mg Tablet, 50 MG PO Q6 PRN for PAIN, #10 TAB Prov:ALBERT ANDRES PA-C 06/27/18 Erythromycin Base (Erythromycin) 1 Gm Oint...g., 1 APPLIC BOTH EYES TID for 7 Days Prov:ALBERT ANDRES PA-C 08/08/17 Cetirizine Hcl* (Zyrtec*) 10 Mg Capsule, 10 MG PO DAILY, #10 TAB.CHEW Prov:ALBERT ANDRES PA-C 08/08/17 Ibuprofen* (Motrin*) 800 Mg Tab, 800 MG PO Q6H PRN for PAIN AND OR ELEVATED TEMP, #30 TAB Prov:LAYA CURRAN DO 12/18/16 Allergies Allergies: Coded Allergies: No Known Allergy (Unverified , 06/27/18) PMhx/Soc History of Surgery: No Anesthesia Reaction: No Hx Neurological Disorder: No Hx Respiratory Disorders: No Hx Cardiac Disorders: No Hx Miscellaneous Medical Probl: No Hx Alcohol Use: No Hx Substance Use: No Hx Tobacco Use: No Smoking Status: Never smoker Physical Exam Vitals Vital Signs Date Temp Pulse Resp B/P (MAP) Pulse Ox O2 O2 Flow FiO2 Time Delivery Rate 10/08/18 98.2 93 18 134/72 98 04:31 (92) Physical Exam Const: No acute distress Resp: Clear to auscultation bilaterally Cardio: Regular rate and rhythm, no murmurs Skin: Right scalp tamar intact Ext: No cyanosis, or edema Neur: Awake and alert Psych: Normal Mood and Affect Procedures/MDM Staple Removal by me: tamar removed with staple remover without incident. Wound shows no evidence of infection, foreign body, neurologic injury, vascular injury, open joint or tendon laceration. Patient to follow up PRN. Medical Decision Making: Patient appeared well on physical exam. Patient presented for staple removal of the scalp laceration was repaired about a week ago. Tamar were removed, see procedure note above Patient advised to follow up with PCP in 1-2 days. Patient advised to return to ED for new or worsening symptoms. Patient stable on discharge from the ED. Disclaimer: Inadvertent spelling and grammatical errors are likely due to EHR/dictation software use and do not reflect on the overall quality of patient care. Also, please note that the electronic time recorded on this note does not necessarily reflect the actual time of the patient encounter. Departure Diagnosis: Primary Impression: Encounter for removal of tamar Condition: Fair Patient Instructions: Staple Removal, No Complication Referrals: JULIÁN APPLE MD (PCP) Additional Instructions: Call your primary care doctor TOMORROW for an appointment during the next 1-2 days.See the doctor sooner or return here if your condition worsens before your appointment time. AISLINN CHATMAN DO Oct 08, 2018 05:55
== END 2018-10-08 06:21 | disposition home or self-care (01) ==
LOC: FTE 04:17
DX: Z48.02 Encounter for removal of sutures (principal)
CPT/HCPCS: 99281